=== PATIENT | female | born 1995 | race American Indian/Alaskan Native ===

== ENCOUNTER 2016-07-24 11:43 | Emergency (ER) | payer SELFPAY ==
[2016-07-24 12:25] LABS: Bacteria,Urine 1+ /HPF (Negative); Bilirubin,Urine NEG (Negative); Blood,Urine MOD (Negative); Ketones,Urine NEG (Negative); Leukocyte Esterase,Urine MOD (Negative); Nitrite,Urine NEG (Negative); Protein,Urine <15 mg/dL mg/dL (Negative); Urobilinogen,Urine < 2.0 mg/dL (<2.0)
[2016-07-24 12:31] LABS: Basophils % (Auto) 0.5 % (0.0-1.8); Eosinophils % (Auto) 1.4 % (0.0-4.3); Hemoglobin 13.7 gm/dl (10.1-14.3); Mean Corpuscular HGB Conc 33 % (30-34); Mean Corpuscular Hemoglobin 31 pg (28-32); Mean Corpuscular Volume 92 fl (79-97); Platelet Count 263 K/mm3 (140-440); Red Blood Count 4.45 M/mm3 (3.65-5.03); Red Cell Distribution Width 12.9 % (13.2-15.2); White Blood Count 7.3 K/mm3 (4.5-11.0)
[2016-07-24 13:32] LABS: Alanine Aminotransferase 10 units/L (7-56); Albumin 4.3 g/dL (3.9-5); Albumin/Globulin Ratio 1.4 %; Alkaline Phosphatase 44 units/L (35-129); Anion Gap 19 mmol/L; BUN/Creatinine Ratio 8.75; Blood Urea Nitrogen 7 mg/dL (7-17); Calcium 9.3 mg/dL (8.4-10.2); Carbon Dioxide 24 mmol/L (22-30); Chloride 97.8 mmol/L (98-107); Glucose 73 mg/dL (65-100); Potassium 3.6 mmol/L (3.6-5.0); Sodium 137 mmol/L (137-145); Total Protein 7.3 g/dL (6.3-8.2)
--- NOTE | 2016-07-24 13:59 | Emergency Department Report ---
ED Female HPI - General Chief complaint: Nausea/Vomiting/Diarrhea Stated complaint: VOMITING/ABD PAIN/LIGHT BLEEDING Time Seen by Provider: 07/24/16 13:22 Source: patient Mode of arrival: Ambulatory Limitations: No Limitations - History of Present Illness Initial comments: 20-year-old female past medical history none presents with complaint of pelvic pain vaginal spotting and crampy lower abdominal pain. Patient states her last menstrual period was June 07. Patient states she took a home test last week but was negative, patient now presenting with slightly worse and pelvic cramping. MD Complaint: vaginal bleeding Onset/Timin -: week(s) Location: suprapubic Severity: moderate Severity scale (0 -10): 5 Quality: cramping Consistency: intermittent Are you Now?: Yes Associated Symptoms: vaginal discharge, vaginal bleeding - Related Data Previous Rx's Medication Instructions Recorded Last Taken Type Fluconazole [Diflucan TAB] 150 mg PO ONCE #1 tablet 07/24/16 Unknown Rx Ibuprofen [Motrin] 600 mg PO Q8H PRN #30 tablet 07/24/16 Unknown Rx Nitrofurantoin [place]/M-Cryst 100 mg PO Q12HR #14 capsule 07/24/16 Unknown Rx [Macrobid CAP] Allergies Allergy/AdvReac Type Severity Reaction Status Date / Time No Known Allergies Allergy Unverified 07/24/16 11:50 ED Review of Systems ROS: Stated complaint: VOMITING/ABD PAIN/LIGHT BLEEDING Other details as noted in HPI Constitutional: denies: chills, fever Eyes: denies: eye pain, eye discharge, vision change ENT: denies: ear pain, throat pain Respiratory: denies: cough, shortness of breath, wheezing Cardiovascular: denies: chest pain, palpitations Endocrine: no symptoms reported Gastrointestinal: denies: abdominal pain, nausea, diarrhea Genitourinary: discharge (mild vaginal spotting and whitish vaginal discharge). denies: urgency, dysuria Musculoskeletal: denies: back pain, joint swelling, arthralgia Skin: denies: rash, lesions Neurological: denies: headache, weakness, paresthesias Psychiatric: denies: anxiety, depression Hematological/Lymphatic: denies: easy bleeding, easy bruising ED Past Medical Hx - Past Medical History Previous Medical History?: No - Surgical History Past Surgical History?: No - Social History Smoking Status: Never Smoker Substance Use Type: Alcohol, Non Opiate Pain - Medications Home Medications: Home Medications Medication Instructions Recorded Confirmed Last Taken Type Fluconazole [Diflucan TAB] 150 mg PO ONCE #1 tablet 07/24/16 Unknown Rx Ibuprofen [Motrin] 600 mg PO Q8H PRN #30 tablet 07/24/16 Unknown Rx Nitrofurantoin [place]/M-Cryst 100 mg PO Q12HR #14 capsule 07/24/16 Unknown Rx [Macrobid CAP] ED Physical Exam - General Limitations: No Limitations General appearance: alert, in no apparent distress - Head Head exam: Present: atraumatic, normocephalic - Eye Eye exam: Present: normal appearance, PERRL, EOMI - ENT ENT exam: Present: mucous membranes moist - Neck Neck exam: Present: normal inspection - Respiratory Respiratory exam: Present: normal lung sounds bilaterally. Absent: respiratory distress - Cardiovascular Cardiovascular Exam: Present: regular rate, normal rhythm. Absent: systolic murmur, diastolic murmur, rubs, gallop - GI/Abdominal GI/Abdominal exam: Present: soft, normal bowel sounds - Speculum exam: Present: vaginal discharge, vaginal bleeding Bi-manual exam: Present: normal bi-manual exam - Extremities Exam Extremities exam: Present: normal inspection, full ROM - Back Exam Back exam: Present: normal inspection - Neurological Exam Neurological exam: Present: alert, oriented X3 - Psychiatric Psychiatric exam: Present: normal affect, normal mood - Skin Skin exam: Present: warm, dry, intact, normal color. Absent: rash ED Course Vital Signs 07/24/16 11:51 Temperature 98.8 F Pulse Rate 80 Respiratory 20 Rate Blood Pressure 125/82 O2 Sat by Pulse 100 Oximetry ED Medical Decision Making - Lab Data Result diagrams: 07/24/16 12:12 07/24/16 12:12 - Medical Decision Making A/P: , vaginal bleeding, rule out ectopic 1-ultrasound consistent with demise, I discussed case with Dr. Chowdary 2-I consulted TARIFF INSPECTOR Dr. Johnson. As patient is A- blood type will give RhoGAM as she has had miscarriages in the past. 3-patient to follow up with Dr. Johnson this week for management of demise 4-I advised patient to return to the ED for any vaginal hemorrhage fever chills or worsening pelvic pain 5- Motrin when necessary for discomfort 6- Critical care attestation.: If time is entered above; I have spent that time in minutes in the direct care of this critically ill patient, excluding procedure time. ED Disposition Clinical Impression: demise Disposition: DC-01 TO HOME OR SELFCARE Is pt being admited?: No Does the pt Need Aspirin: No Condition: Stable Instructions: Rho(D) Immune Globulin (Injection), Intrauterine Demise (ED ) Prescriptions: Fluconazole [Diflucan TAB] 150 mg PO ONCE #1 tablet Ibuprofen [Motrin] 600 mg PO Q8H PRN #30 tablet PRN Reason: Pain Nitrofurantoin [place]/M-Cryst [Macrobid CAP] 100 mg PO Q12HR #14 capsule Referrals: MYNOR JOHNSON MD [Staff Physician] - 3-5 Days Forms: Work/School Release Form(ED) Time of Disposition: 17:26
--- NOTE | 2016-07-24 15:08 | Ultrasound Report ---
ULTRASOUND OB LESS THAN 14 WEEKS - TRANSABDOMINAL AND TRANSVAGINAL INDICATION: Positive UPT. Serum beta-hCG of 23,044 units. Abdominal, midline pelvic pain. Nausea, vomiting, vaginal spotting. Evaluate for ectopic . COMPARISON: None similar at this institution. FINDINGS: Transabdominal and transvaginal pelvic sonography performed in this patient with LMP of 06/07/2016 and estimated menstrual age of 6 weeks and 5 days. A 9.8 x 4.1 x 5.7 cm retroverted uterus demonstrates an abnormal gestational sac appearance with mean diameter of 1.09 cm corresponding to 5 weeks and 6 days. Mean crown-rump length of 0.57 cm corresponds to 6 weeks and 3 days. Yolk sac measures 0.6 cm. No heart rate obtained or cardiac activity observed. No significant pelvic free fluid. Both maternal ovaries identified, estimated at 3 x 2.6 x 2.6 cm on the right and 3.2 x 2.4 x 3 cm on the left. Complex bilateral ovarian cysts may measure approximately 1.8-2 cm. CONCLUSION: 1. Sonographic findings may represent intrauterine demise/nonviability at ultrasound estimated gestational age of 6 weeks and 1 day, as described. 2. Few other findings, as above. Please also correlate clinically and with serial serum beta-hCG values, as warranted. Thank you for the opportunity to participate in this patient's care.
[2016-07-24 17:52] VITALS: BP 122/76
== END 2016-07-24 17:51 | disposition home or self-care (01) ==
LOC: ED 11:43
DX: R10.2 Pelvic and perineal pain (principal); N93.9 Abnormal uterine and vaginal bleeding, unspecified
CPT/HCPCS: 36415; 76801; 76817; 80053; 81001; 84702; 84703; 85025; 86850; 86900; 86901; 87210; 87591; 99284; J2790

== ENCOUNTER 2017-10-28 10:53 | Emergency (ER) | payer OTHER ==
[2017-10-28 11:07] VITALS: BP 116/71
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
== END 2017-10-28 14:38 | disposition home or self-care (01) ==
LOC: ED 10:53
DX: S39.012A Strain of muscle, fascia and tendon of lower back, initial encounter (principal); V89.2XXA Person injured in unspecified motor-vehicle accident, traffic, initial encounter; Y93.89 Activity, other specified; Y99.8 Other external cause status; Y92.410 Unspecified street and highway as the place of occurrence of the external cause
CPT/HCPCS: 99282

== ENCOUNTER 2018-07-30 12:46 | Emergency (ER) | payer SELFPAY ==
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
--- NOTE | 2018-07-30 15:00 | XRay Report ---
LUMBOSACRAL SPINE, 3 VIEWS: History: Back pain Findings: The vertebral bodies, disk spaces and posterior elements are intact. No compression deformity or malalignment. The SI joints are symmetric and unremarkable. Impression: 1. No evidence for acute injury to the lumbar spine.
[2018-07-30] MEDS ORDERED: TORADOL IM ONE (15:51)
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
[2018-07-30] MEDS ORDERED: DELTASONE PO NR (16:00)
[2018-07-30 17:25] VITALS: BP 108/77
== END 2018-07-30 17:34 | disposition home or self-care (01) ==
LOC: ED 12:46
DX: M54.5 Low back pain (principal); V49.59XA Passenger injured in collision with other motor vehicles in traffic accident, initial encounter; Y93.89 Activity, other specified; Y92.410 Unspecified street and highway as the place of occurrence of the external cause; Y99.8 Other external cause status
CPT/HCPCS: 72100; 96372; 99283; J1885; J7512

== ENCOUNTER 2021-05-08 07:26 | Outpatient (CLI) | payer BC ==
--- NOTE | 2021-05-09 14:23 | Electrocardiograph Report ---
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
== END 2021-05-08 07:27 | disposition home or self-care (01) ==
LOC: CARD 07:26
DX: Z01.810 Encounter for preprocedural cardiovascular examination (principal)
CPT/HCPCS: 93005